=== PATIENT | male | born 1965 | race Caucasian/White ===

== ENCOUNTER 2018-09-21 16:43 | Emergency (ER) | payer SELFPAY ==
[~2018-09-21] VITALS: Ht 180.3 cm; Wt 77.3 kg
[2018-09-21 16:46] VITALS: BP 136/73
[2018-09-21] MEDS ORDERED: MORP15TA PO (17:35)
== END 2018-09-21 17:57 | disposition home or self-care (01) ==
LOC: ER 16:44
DX: C22.9 Malignant neoplasm of liver, not specified as primary or secondary (principal); Z76.0 Encounter for issue of repeat prescription; Z79.899 Other long term (current) drug therapy
CPT/HCPCS: 99283

== ENCOUNTER 2018-10-01 16:52 | Emergency (ER) | payer MEDICAID ==
[~2018-10-01] VITALS: Ht 177.8 cm; Wt 77.3 kg
[~2018-10-01 16:52] MED LIST: MORP15TA PO
[2018-10-01] MEDS ORDERED: normal saline 1000ML IV soln IVB ONE (17:30)
[2018-10-01] MEDS ORDERED: morphine 4 MG/ML inj SYRINge IV ONE (17:30)
[2018-10-01 17:45] LABS: BASOPHILS # (AUTO) 0.1 X10'3 (0-0.2); BASOPHILS % (AUTO) 1.3 % (0-1); EOSINOPHILS # (AUTO) 0.4 X10'3 (0-0.9); EOSINOPHILS % (AUTO) 6.9 % (0-6); HEMATOCRIT 44.8 % (42.0-52.0); HEMOGLOBIN 15.4 g/dl (14.0-17.9); LYMPHOCYTES # (AUTO) 1.8 X10'3 (1.1-4.8); LYMPHOCYTES % (AUTO) 31.4 % (21-51); MEAN CORPUSCULAR HEMOGLOBIN 32.4 PG (27.0-31.0); MEAN CORPUSCULAR HGB CONC 34.4 g/dL (33.0-36.5); MEAN CORPUSCULAR VOLUME 94.1 FL (78-98); MEAN PLATELET VOLUME 9.2 FL (7.4-10.4); MONOCYTES # (AUTO) 0.7 X10'3 (0-0.9); MONOCYTES % (AUTO) 11.8 % (2-12); NEUTROPHILS # (AUTO) 2.8 X10'3 (1.8-7.7); NEUTROPHILS % (AUTO) 48.6 % (42-75); PLATELET COUNT 170 X10'3 (140-440); RED BLOOD COUNT 4.76 X10'6 (4.70-6.10); RED CELL DISTRIBUTION WIDTH 14.5 % (11.5-14.5); WHITE BLOOD COUNT 5.8 X10'3 (4.5-11.0)
[2018-10-01] MEDS ORDERED: diphenhydrAMINE 50 mg/ml inj IV ONE (17:50)
--- NOTE | 2018-10-01 17:51 | NUR ---
LEFT ARM/IV SITE RED WITH HIVES.LOCALIZED, TITA AWARE, BENADRYL AND ICE APPLYED.
[2018-10-01 17:58] LABS: ALANINE AMINOTRANSFERASE 60 U/L (12-78); ALBUMIN 2.7 G/DL (3.4-5.0); ALBUMIN/GLOBULIN RATIO 0.7 (1.1-1.5); ALKALINE PHOSPHATASE 192 IU/L (46-116); ANION GAP 8 (8-16); ASPARTATE AMINO TRANSFERASE 63 U/L (10-37); BILIRUBIN,TOTAL 1.5 MG/DL (0.1-1.0); BLOOD UREA NITROGEN 11 MG/DL (7-18); BUN/CREATININE RATIO 14.9 (5.4-32.0); CALCIUM 8.5 MG/DL (8.5-10.1); CHLORIDE 110 MMOL/L (99-107); CREATININE 0.74 MG/DL (0.60-1.10); GLUCOSE 117 MG/DL (70-104); POTASSIUM 3.8 MMOL/L (3.5-5.1); SODIUM 143 MMOL/L (135-145); TOTAL CARBON DIOXIDE 25.5 MMOL/L (24-32); TOTAL PROTEIN 6.7 G/DL (6.4-8.2); eGFR > 90 ML/MIN
--- NOTE | 2018-10-01 18:01 | NUR ---
LEFT ARM WITH LOCALIZED HIVE, NOT RED IN COLOR, ICE IN PLACE
[2018-10-01] MEDS ORDERED: lactulose 20gm/30ml cup PO ONE (18:15)
[2018-10-01] MEDS ORDERED: SPIR25TA5 PO (18:49)
[2018-10-01] MEDS ORDERED: LACT10SO PO (18:49)
[2018-10-01] MEDS ORDERED: PROP10TA10 PO (18:49)
[2018-10-01 19:08] VITALS: BP 158/107
== END 2018-10-01 19:11 | disposition home or self-care (01) ==
LOC: ER 16:55
DX: E72.20 Disorder of urea cycle metabolism, unspecified (principal); K74.60 Unspecified cirrhosis of liver; R06.02 Shortness of breath; I11.0 Hypertensive heart disease with heart failure; I50.9 Heart failure, unspecified; Z95.0 Presence of cardiac pacemaker; Z85.05 Personal history of malignant neoplasm of liver; Z79.899 Other long term (current) drug therapy
CPT/HCPCS: 36415; 71045; 80053; 82140; 83880; 84484; 85025; 93005; 96374; 96375; 99284; J1200; J2270; J7030

== ENCOUNTER 2018-10-04 05:07 | Emergency (ER) | payer MEDICAID, MEDICARE ==
[~2018-10-04] VITALS: Ht 177.8 cm; Wt 74.5 kg
[~2018-10-04 05:07] MED LIST changes: +LACT10SO PO; -MORP15TA PO; +PROP10TA10 PO; +SPIR25TA5 PO
[2018-10-04 05:09] VITALS: BP 163/109
--- NOTE | 2018-10-04 05:54 | NUR ---
He states he is from [place] and stuck here in [place] and is with family and can't get his morphine prescription filled because he is out of state and narcotic prescriptions dont transfer across state lines. States he uses it for his liver cancer.
--- NOTE | 2018-10-04 06:41 | NUR ---
PT. WAS BEING THEATENING TOWARDS DR. JUAN. ONE STAFF MEMBER OUTSIDE THE ROOM AT THE DOOR WAY. I WAS STANDING OUTSIDE THE ROOM ON THE OTHER SIDE OF THE DOOR. PT. WAS NOT GETTING THE MEDICATION HE WAS REQUESTING FROM DR. JUAN, AND WHEN SHE WANTED TO DESCUSS TREATING HIS SYMPTOMS WITH OUT THE USE OF AN OPIOID PT, MADE VIOLENT STATEMENTS, BUT MADE NO MOVE TO FOLLOW THROUGH WITH THEM. PT. THEN WANTED TO ENGAGE OTHER STAFF MEMBERS IN HIS DISPLAY OF AGITATED BERRAGE OF INSULTS. PT. STATED TO ME " THERE IS NO REASON FOR US TO ARGUE, I CAN BE THE ONE WHO LOOKS LIKE THE ASS" I AGREED WITH THE PT. AND WALKED AWAY PT. WALKED OUT OF THE BACK DOORS ON TO THE AMBULANCE BAY AND THEN PROCEDED TO THROW HIS DISCHARGE PAPER WORK ALL OVER OUR PARKING LOT. MYSELF AND ADMIT LOCKSTITCHER PICKED UP ALL THE PAPERS AND PUT THEM IN THE CONFIDENTIAL WASTE TO PROVENT PT. FROM CAUSING A HIPPA VIOLATION
== END 2018-10-04 07:07 | disposition left against medical advice (07) ==
LOC: ER 05:07
DX: G89.29 Other chronic pain (principal); Z76.0 Encounter for issue of repeat prescription; I50.9 Heart failure, unspecified; Z85.05 Personal history of malignant neoplasm of liver; Z79.899 Other long term (current) drug therapy
CPT/HCPCS: 99281

== ENCOUNTER 2019-06-10 11:34 | Emergency (ER) | payer MEDICAID ==
[~2019-06-10] VITALS: Ht 177.8 cm; Wt 75.5 kg
[~2019-06-10 11:34] MED LIST changes: -PROP10TA10 PO
[2019-06-10] MEDS ORDERED: ketorolac trometh. 30mg/ml inj. IM ONE (12:10)
[2019-06-10] MEDS ORDERED: morphine 4 MG/ML inj SYRINge IM ONE (12:10)
[2019-06-10 12:30] VITALS: BP 140/86
== END 2019-06-10 12:32 | disposition home or self-care (01) ==
LOC: ER 11:35
DX: R10.11 Right upper quadrant pain (principal); G89.29 Other chronic pain; I50.9 Heart failure, unspecified; Z79.899 Other long term (current) drug therapy
CPT/HCPCS: 96372; 99284; J1885; J2270

== ENCOUNTER 2019-06-14 23:02 | Emergency (ER) | payer MEDICAID ==
[~2019-06-14] VITALS: Ht 177.8 cm; Wt 74.0 kg
[2019-06-14 23:08] VITALS: BP 135/79
[2019-06-14] MEDS ORDERED: ondansetron 4mg rapidly disintigrating tab PO ONE (23:25)
[2019-06-14] MEDS ORDERED: morphine ER 15mg tablet PO PRN (23:25)
[2019-06-14] MEDS ORDERED: morphine IR (immed. release) 30mg tablet PO PRN (23:25)
[2019-06-15] MEDS ORDERED: proCHLORperazine 10 MG/2 ml inj IM ONE
== END 2019-06-15 00:09 | disposition home or self-care (01) ==
LOC: ER 23:02
DX: R10.11 Right upper quadrant pain (principal); I50.9 Heart failure, unspecified; G89.29 Other chronic pain; Z85.9 Personal history of malignant neoplasm, unspecified; Z72.89 Other problems related to lifestyle; Z79.899 Other long term (current) drug therapy
CPT/HCPCS: 96372; 99284; J0780

== ENCOUNTER 2019-08-11 11:34 | Emergency (ER) | payer MEDICAID ==
[~2019-08-11] VITALS: Ht 177.8 cm; Wt 77.4 kg
[2019-08-11 11:58] VITALS: BP 125/80
[2019-08-11] MEDS ORDERED: HYDROmorphone 1 mg/ml syringe IM ONE (12:05)
[2019-08-11 12:21] LABS: BASOPHILS # (AUTO) 0.2 X10'3 (0-0.2); EOSINOPHILS # (AUTO) 0.6 X10'3 (0-0.9); HEMOGLOBIN 13.7 g/dl (14.0-17.9); LYMPHOCYTES % (AUTO) 22.8 % (21-51)
[2019-08-11 12:23] LABS: BASOPHILS % (AUTO) 2.2 % (0-1); EOSINOPHILS % (AUTO) 9.1 % (0-6); HEMATOCRIT 40.1 % (42.0-52.0); LYMPHOCYTES # (AUTO) 1.6 X10'3 (1.1-4.8); MEAN CORPUSCULAR HEMOGLOBIN 31.5 PG (27.0-31.0); MEAN CORPUSCULAR HGB CONC 34.2 g/dL (33.0-36.5); MEAN CORPUSCULAR VOLUME 92.2 FL (78-98); MONOCYTES # (AUTO) 0.9 X10'3 (0-0.9); MONOCYTES % (AUTO) 13.3 % (2-12); NEUTROPHILS # (AUTO) 3.7 X10'3 (1.8-7.7); NEUTROPHILS % (AUTO) 52.6 % (42-75); PLATELET COUNT 155 X10'3 (140-440); RED BLOOD COUNT 4.35 X10'6 (4.70-6.10)
[2019-08-11 12:32] LABS: ALANINE AMINOTRANSFERASE 22 U/L (12-78); ALBUMIN 2.8 G/DL (3.4-5.0); ALBUMIN/GLOBULIN RATIO 0.8 (1.1-1.5); ALKALINE PHOSPHATASE 118 IU/L (46-116); ANION GAP 9 (8-16); ASPARTATE AMINO TRANSFERASE 20 U/L (10-37); BILIRUBIN,TOTAL 1.5 MG/DL (0.1-1.0); BLOOD UREA NITROGEN 10 MG/DL (7-18); BUN/CREATININE RATIO 14.5 (5.4-32.0); CALCIUM 8.5 MG/DL (8.5-10.1); CHLORIDE 110 MMOL/L (99-107); CREATININE 0.69 MG/DL (0.60-1.10); GLUCOSE 118 MG/DL (70-104); POTASSIUM 3.5 MMOL/L (3.5-5.1); SODIUM 143 MMOL/L (135-145); TOTAL CARBON DIOXIDE 24.2 MMOL/L (24-32); TOTAL PROTEIN 6.3 G/DL (6.4-8.2); eGFR > 90 ML/MIN
== END 2019-08-11 13:13 | disposition home or self-care (01) ==
LOC: ER 11:35
DX: R07.89 Other chest pain (principal); I50.9 Heart failure, unspecified; G89.29 Other chronic pain; Z79.899 Other long term (current) drug therapy
CPT/HCPCS: 71045; 80053; 84484; 85025; 93005; 96372; 99285; J1170

== ENCOUNTER 2019-08-24 16:56 | Emergency (ER) | payer MEDICAID ==
[~2019-08-24] VITALS: Ht 177.8 cm; Wt 78.0 kg
--- NOTE | 2019-08-24 18:28 | NUR ---
Pt notified EDT that he is wanting pain medication. Provider notified of patient's request. Pt is resting in a position of comfort on the gurney.
[2019-08-24] MEDS ORDERED: morphine 4 MG/ML inj SYRINge IM ONE (18:45)
[2019-08-24 19:09] VITALS: BP 147/100
== END 2019-08-24 19:11 | disposition home or self-care (01) ==
LOC: ER 16:56
DX: Z75.2 Other waiting period for investigation and treatment (principal); I50.9 Heart failure, unspecified; G89.29 Other chronic pain; Z85.9 Personal history of malignant neoplasm, unspecified; Z72.89 Other problems related to lifestyle; Z79.899 Other long term (current) drug therapy
CPT/HCPCS: 96372; 99283; J2270

== ENCOUNTER 2019-08-25 11:07 | Emergency (ER) | payer MEDICAID ==
[~2019-08-25] VITALS: Ht 177.8 cm; Wt 72.7 kg
[2019-08-25] MEDS ORDERED: morphine 4 MG/ML inj SYRINge IM ONE (11:55)
[2019-08-25] MEDS ORDERED: ondansetron 4mg rapidly disintigrating tab PO ONE (11:55)
[2019-08-25 14:08] VITALS: BP 137/87
== END 2019-08-25 14:10 | disposition home or self-care (01) ==
LOC: ER 11:09
DX: S60.311A Abrasion of right thumb, initial encounter (principal); G89.29 Other chronic pain; M79.641 Pain in right hand; R07.81 Pleurodynia; I25.10 Atherosclerotic heart disease of native coronary artery without angina pectoris; Z85.9 Personal history of malignant neoplasm, unspecified; Z72.89 Other problems related to lifestyle; Z79.899 Other long term (current) drug therapy; W18.39XA Other fall on same level, initial encounter; Y93.89 Activity, other specified; Y92.89 Other specified places as the place of occurrence of the external cause; Y99.8 Other external cause status
CPT/HCPCS: 93005; 96372; 99284; J2270

== ENCOUNTER 2019-09-09 19:02 | Emergency (ER) | payer MEDICAID ==
[~2019-09-09] VITALS: Ht 177.8 cm; Wt 72.7 kg
--- NOTE | 2019-09-09 19:28 | NUR ---
X RAY AT BEDSIDE
[2019-09-09 19:36] LABS: BASOPHILS # (AUTO) 0.1 X10'3 (0-0.2); BASOPHILS % (AUTO) 1.4 % (0-1); EOSINOPHILS # (AUTO) 0.5 X10'3 (0-0.9); EOSINOPHILS % (AUTO) 8.6 % (0-6); HEMATOCRIT 42.1 % (42.0-52.0); HEMOGLOBIN 14.3 g/dl (14.0-17.9); LYMPHOCYTES # (AUTO) 2.1 X10'3 (1.1-4.8); LYMPHOCYTES % (AUTO) 39.2 % (21-51); MEAN CORPUSCULAR HEMOGLOBIN 31.8 PG (27.0-31.0); MEAN CORPUSCULAR VOLUME 93.6 FL (78-98); MONOCYTES # (AUTO) 0.6 X10'3 (0-0.9); MONOCYTES % (AUTO) 11.7 % (2-12); NEUTROPHILS # (AUTO) 2.1 X10'3 (1.8-7.7); NEUTROPHILS % (AUTO) 39.1 % (42-75); PLATELET COUNT 168 X10'3 (140-440); RED BLOOD COUNT 4.49 X10'6 (4.70-6.10); RED CELL DISTRIBUTION WIDTH 15.2 % (11.5-14.5); WHITE BLOOD COUNT 5.3 X10'3 (4.5-11.0)
[2019-09-09 19:49] LABS: ALANINE AMINOTRANSFERASE 20 U/L (12-78); ALBUMIN/GLOBULIN RATIO 0.8 (1.1-1.5); ALKALINE PHOSPHATASE 114 IU/L (46-116); ANION GAP 7 (8-16); ASPARTATE AMINO TRANSFERASE 24 U/L (10-37); BILIRUBIN,TOTAL 0.9 MG/DL (0.1-1.0); BLOOD UREA NITROGEN 12 MG/DL (7-18); BUN/CREATININE RATIO 16.2 (5.4-32.0); CALCIUM 8.8 MG/DL (8.5-10.1); CHLORIDE 111 MMOL/L (99-107); CREATININE 0.74 MG/DL (0.60-1.10); GLUCOSE 111 MG/DL (70-104); POTASSIUM 3.8 MMOL/L (3.5-5.1); SODIUM 143 MMOL/L (135-145); TOTAL PROTEIN 6.9 G/DL (6.4-8.2); eGFR > 90 ML/MIN
[2019-09-09] MEDS ORDERED: ondansetron/PF 4mg/2ml inj IV ONE (20:35)
[2019-09-09] MEDS ORDERED: morphine 4 MG/ML inj SYRINge IV ONE (20:35)
[2019-09-09 21:45] LABS: D-DIMER 1.87 MG/L FEU (0-0.50)
[2019-09-09] MEDS ORDERED: iohexol 350MG/ML 100ml bottle IV ONE (22:02)
--- NOTE | 2019-09-09 22:15 | NUR ---
PT TO CT
[2019-09-09 22:49] VITALS: BP 146/82
== END 2019-09-09 23:30 | disposition home or self-care (01) ==
LOC: ER 19:02
DX: I50.9 Heart failure, unspecified (principal); R06.02 Shortness of breath; R07.9 Chest pain, unspecified; G89.29 Other chronic pain; Z85.9 Personal history of malignant neoplasm, unspecified; Z79.899 Other long term (current) drug therapy
CPT/HCPCS: 36415; 71045; 71275; 80053; 83880; 84484; 85025; 85379; 93005; 96374; 96375; 99285; J2270; J2405; Q9967

== ENCOUNTER 2019-11-07 11:04 | Inpatient (IN) | payer MEDICAID ==
[~2019-11-07] VITALS: Ht 177.8 cm; Wt 77.3 kg
--- NOTE | 2019-11-07 11:11 | NUR ---
Original POLST form brought in with pt to show DNR with comfort focused treatment.
[2019-11-07 11:41] LABS: CLARITY,URINE CLEAR (Clear); COLOR,URINE STRAW (Yellow); GLUCOSE, URINE NEGATIVE (Neg); KETONES,URINE NEGATIVE (Neg); LEUKOCYTE ESTERASE ,URINE NEGATIVE (Neg); NITRITES, URINE NEGATIVE (Neg); OCCULT BLOOD,URINE NEGATIVE (Neg); PROTEIN,URINE NEGATIVE (Neg); UROBILINOGEN,URINE 0.2 E.U/dL (0.2-1.0)
[2019-11-07 11:42] LABS: UA COLLECTION TYPE CLN CATCH MIDSTREAM
[2019-11-07 11:48] LABS: BASOPHILS # (AUTO) 0.1 X10'3 (0-0.2); BASOPHILS % (AUTO) 1.6 % (0-1); EOSINOPHILS # (AUTO) 0.4 X10'3 (0-0.9); EOSINOPHILS % (AUTO) 6.7 % (0-6); HEMATOCRIT 40.7 % (42.0-52.0); HEMOGLOBIN 14.2 g/dl (14.0-17.9); LYMPHOCYTES # (AUTO) 1.5 X10'3 (1.1-4.8); LYMPHOCYTES % (AUTO) 26.5 % (21-51); MEAN CORPUSCULAR HEMOGLOBIN 31.9 PG (27.0-31.0); MEAN CORPUSCULAR HGB CONC 34.8 g/dL (33.0-36.5); MEAN CORPUSCULAR VOLUME 91.7 FL (78-98); MONOCYTES # (AUTO) 0.5 X10'3 (0-0.9); MONOCYTES % (AUTO) 9.5 % (2-12); NEUTROPHILS # (AUTO) 3.2 X10'3 (1.8-7.7); NEUTROPHILS % (AUTO) 55.7 % (42-75); PLATELET COUNT 162 X10'3 (140-440); RED BLOOD COUNT 4.44 X10'6 (4.70-6.10); RED CELL DISTRIBUTION WIDTH 14.5 % (11.5-14.5); WHITE BLOOD COUNT 5.7 X10'3 (4.5-11.0)
[2019-11-07 11:58] LABS: ALANINE AMINOTRANSFERASE 33 U/L (12-78); ALBUMIN/GLOBULIN RATIO 0.7 (1.1-1.5); ALKALINE PHOSPHATASE 138 IU/L (46-116); ANION GAP 5 (8-16); ASPARTATE AMINO TRANSFERASE 47 U/L (10-37); BILIRUBIN,TOTAL 0.9 MG/DL (0.1-1.0); BLOOD UREA NITROGEN 13 MG/DL (7-18); BUN/CREATININE RATIO 19.1 (5.4-32.0); CALCIUM 9.2 MG/DL (8.5-10.1); CHLORIDE 106 MMOL/L (99-107); CREATININE 0.68 MG/DL (0.60-1.10); GLUCOSE 92 MG/DL (70-104); POTASSIUM 3.4 MMOL/L (3.5-5.1); SODIUM 141 MMOL/L (135-145); TOTAL CARBON DIOXIDE 29.6 MMOL/L (24-32); TOTAL PROTEIN 7.1 G/DL (6.4-8.2); eGFR > 90 ML/MIN
[2019-11-07 11:59] LABS: URINE AMPHETAMINE SCREEN NEGATIVE (Neg); URINE BARBITUATE SCREEN NEGATIVE (Neg); URINE BENZODIAZEPINES SCREEN NEGATIVE (Neg); URINE CANNABINOID SCREEN NEGATIVE (Neg); URINE COCAINE SCREEN NEGATIVE (Neg); URINE METHADONE SCREEN NEGATIVE (Neg); URINE OPIATE SCREEN POSITIVE (Neg); URINE PHENCYCLIDINE SCREEN NEGATIVE (Neg)
[2019-11-07 12:03] LABS: ETHANOL < 0.010 GM/DL (0.0-0.010)
[2019-11-07] MEDS ORDERED: metoclopramide 5 mg/ml inj IV PRN (12:30)
[2019-11-07] MEDS ORDERED: potassium CL 10mEq/100ml bag 100 ML IV PRN ×2 (12:30)
[2019-11-07] MEDS ORDERED: magnesium 4gm in 100ml NS 100 ML IV PRN (12:30)
[2019-11-07] MEDS ORDERED: magnesium hydroxide 30ml (MOM) UD suspension PO PRN (12:30)
[2019-11-07] MEDS ORDERED: acetaminophen 325mg tablet PO PRN (12:30)
[2019-11-07] MEDS ORDERED: bisacodyl 10mg suppository rectal RC PRN (12:30)
[2019-11-07] MEDS ORDERED: magnesium 2GM in 50ml NS 50 ML IV PRN (12:30)
[2019-11-07] MEDS ORDERED: potassium Cl 20 mEq SR tablet PO PRN (12:30)
[2019-11-07] MEDS ORDERED: ondansetron/PF 4mg/2ml inj IV PRN (12:30)
[2019-11-07] MEDS ORDERED: mag hydrox/Alum hydrox/simeth 30ml oral suspension PO PRN (12:30)
[2019-11-07] MEDS ORDERED: magnesium Cl slow-release 64mg tablet PO PRN (12:30)
[2019-11-07] MEDS ORDERED: LORA-268 PO (12:37)
[2019-11-07] MEDS ORDERED: OLAN10TA19 PO (12:37)
[2019-11-07] MEDS ORDERED: MORP30TA PO (12:37)
[2019-11-07] MEDS ORDERED: MORP-92 PO (12:37)
[2019-11-07] MEDS ORDERED: MSC30T PO (12:37)
[2019-11-07] MEDS ORDERED: MELO-100 PO (12:37)
--- NOTE | 2019-11-07 12:44 | NUR ---
Spoke to Steffanie GARSIA with [facility] who is in charge of pt's palliative care treatment. Per RN, the pt gets his medications dosed on a weekly basis, and she feels that he recently did something inccorectly as he is already asking for refills when he is not yet due. Pt also recently returned from a 3 week stay in [facility] at which time the pt began to complain of ascites and leg swelling. Pt finished 3 days course of 20mg Lasix BID roughly 3 days ago. Most recent scans taken of pt did show lesions on his lungs as well; pt is aware of this. Pt was previously on hospice, however he got beligerant from not taking lactulose, and was "fired" from their services. On Palliative as of 06/21/19. Steffanie states that the pt missed his visit yesterday, and also did not answer her phone calls which is not normal behavior for him. She adds that she is concerned that he once again is not taking his lactulose secondary to side effects. Contact info: [facility] Steffanie GARSIA Office: [phone]
--- NOTE | 2019-11-07 14:18 | NUR ---
PHARMACIST FINISHING MED REC
[2019-11-07] MEDS: lactulose 20gm/30ml cup PO SCH ×2 (14:34→20:00)
[2019-11-07] MEDS: normal saline 1000ml 1,000 ML IV SCH ×2 (14:34→22:28)
[2019-11-07 16:25] VITALS: BP 142/76
--- NOTE | 2019-11-07 17:13 | NUR ---
Patient went to the bathroom to have BM. When patient came back to bed, I noticed the peripheral IV catheter already out.
[2019-11-07 18:00] VITALS: BP 121/91
--- NOTE | 2019-11-07 18:38 | NUR ---
Problems reprioritized. Patient report given, questions answered & plan of care reviewed with Kamilah GARSIA.
--- NOTE | 2019-11-07 18:52 | NUR ---
I have received report from Jaleesa GARSIA and had the opportunity to ask questions and assume patient care.
[2019-11-07] MEDS: potassium Cl 20 mEq SR tablet PO PRN (19:58)
[2019-11-07] MEDS: morphine 4 MG/ML inj SYRINge IV PRN (19:58)
[2019-11-07 20:00] VITALS: BP 158/87
[2019-11-07] MEDS: K and/or MAG REPLACEMENT MC SCH (20:00)
--- NOTE | 2019-11-07 20:03 | NUR ---
Mateo Lucero "I'm having diarrhea, I'll take tomorrow" Addendum: 11/07/19 at 2004 by Hi العلي RN Amended: Links added.
[2019-11-07] MEDS ORDERED: temazepam 15mg capsule PO PRN (21:00)
[2019-11-07] MEDS: olanzapine 10mg tablet PO SCH (21:38)
[2019-11-08] VITALS: BP_SYST 132; BP_SYST 140; BP_DIAS 80; BP_DIAS 90
[2019-11-08] MEDS: potassium Cl 20 mEq SR tablet PO PRN (00:15)
[2019-11-08] MEDS: morphine 4 MG/ML inj SYRINge IV PRN ×4 (00:16→20:35)
--- NOTE | 2019-11-08 01:25 | NUR ---
No belongings documented on admit to er. Pt still refusing to open black case with locks, case is out of patients reach. Addendum: 11/08/19 at 0126 by Hi العلي RN Amended: Links added.
[2019-11-08] MEDS: lactulose 20gm/30ml cup PO SCH ×4 (02:00→20:34)
[2019-11-08] MEDS: normal saline 1000ml 1,000 ML IV SCH ×3 (03:06→22:06)
[2019-11-08 05:23] LABS: BASOPHILS # (AUTO) 0.1 X10'3 (0-0.2); BASOPHILS % (AUTO) 0.9 % (0-1); EOSINOPHILS # (AUTO) 0.4 X10'3 (0-0.9); EOSINOPHILS % (AUTO) 4.9 % (0-6); HEMATOCRIT 39.9 % (42.0-52.0); HEMOGLOBIN 13.9 g/dl (14.0-17.9); LYMPHOCYTES # (AUTO) 1.8 X10'3 (1.1-4.8); LYMPHOCYTES % (AUTO) 22.6 % (21-51); MEAN CORPUSCULAR HGB CONC 34.7 g/dL (33.0-36.5); MEAN CORPUSCULAR VOLUME 92.3 FL (78-98); MEAN PLATELET VOLUME 9.4 FL (7.4-10.4); MONOCYTES # (AUTO) 0.7 X10'3 (0-0.9); MONOCYTES % (AUTO) 9.1 % (2-12); NEUTROPHILS % (AUTO) 62.5 % (42-75); PLATELET COUNT 155 X10'3 (140-440); RED BLOOD COUNT 4.33 X10'6 (4.70-6.10); RED CELL DISTRIBUTION WIDTH 14.4 % (11.5-14.5)
[2019-11-08 06:21] LABS: ALANINE AMINOTRANSFERASE 39 U/L (12-78); ALBUMIN 2.8 G/DL (3.4-5.0); ALBUMIN/GLOBULIN RATIO 0.8 (1.1-1.5); ALKALINE PHOSPHATASE 140 IU/L (46-116); ANION GAP 7 (8-16); ASPARTATE AMINO TRANSFERASE 68 U/L (10-37); BILIRUBIN,TOTAL 1.7 MG/DL (0.1-1.0); BLOOD UREA NITROGEN 13 MG/DL (7-18); CALCIUM 8.8 MG/DL (8.5-10.1); CHLORIDE 108 MMOL/L (99-107); CREATININE 0.65 MG/DL (0.60-1.10); GLUCOSE 83 MG/DL (70-104); MAGNESIUM 1.7 MG/DL (1.5-2.4); POTASSIUM 3.5 MMOL/L (3.5-5.1); SODIUM 142 MMOL/L (135-145); TOTAL CARBON DIOXIDE 27.5 MMOL/L (24-32); TOTAL PROTEIN 6.5 G/DL (6.4-8.2); eGFR > 90 ML/MIN
--- NOTE | 2019-11-08 06:34 | NUR ---
Patient in room [facility]. I have received report from luis m GARSIA and had the opportunity to ask questions and assume patient care.
--- NOTE | 2019-11-08 06:42 | NUR ---
Problems reprioritized. Patient report given, questions answered & plan of care reviewed with Tanja GARSIA.
[2019-11-08 07:00] VITALS: BP 156/87
[2019-11-08] MEDS: K and/or MAG REPLACEMENT MC SCH ×2 (08:00→20:00)
--- NOTE | 2019-11-08 09:38 | NUR ---
patient refusing lactulose wants to be left alone.
--- NOTE | 2019-11-08 10:57 | NUR ---
medicated for pain 10/24 will monitor
[2019-11-08 11:00] VITALS: BP 142/84
[2019-11-08] MEDS ORDERED: RIFA550T PO (11:56)
--- NOTE | 2019-11-08 17:58 | NUR ---
medicated for pain [address] tompkins aware. Is for hospice home care with [facility] time of 1200 11/09/19.Repor given to Kamilah GARSIA
[2019-11-08 18:00] VITALS: BP 121/91
--- NOTE | 2019-11-08 18:43 | NUR ---
I have received report from Tanja GARSIA and had the opportunity to ask questions and assume patient care.
[2019-11-08] MEDS: olanzapine 10mg tablet PO SCH (20:34)
--- NOTE | 2019-11-08 23:37 | NUR ---
amb to bathroom sba regis well, refuses to use urinal. pt dhara harris, has set bed alarm off several times tonight, Forgets he is in hospital. Addendum: 11/08/19 at 7858 by Hi العلي RN Amended: Links added.
[2019-11-09] VITALS: BP 132/80
--- NOTE | 2019-11-09 00:24 | NUR ---
Pt confused, wants to get dressing, oob amb in room pulling on cords, opening bathroom door, moving bedside tray around. States needs to call someone, thinks it is daytime, forgets in hospital. bed alarm and tabs on. pt unhooks tab unit from shirt. pt mumbles. amb back to bed enc pt to stay in bed and instructed he is going home in am. Pt remains confused to place and time. Addendum: 11/09/19 at 0028 by Hi العلي RN Amended: Links added.
[2019-11-09] MEDS: morphine 4 MG/ML inj SYRINge IV PRN (00:37)
[2019-11-09] MEDS ORDERED: LORazepam 0.5 MG tablet PO PRN (01:40)
[2019-11-09] MEDS: lactulose 20gm/30ml cup PO SCH ×2 (01:59→08:00)
--- NOTE | 2019-11-09 03:54 | NUR ---
pt is anxious and agitated. pt is constantly getting out of bed. bed alarm is on because pt is confused to time and place and needs a SBA. Pt mumbles and talks incoherently. Pt keeps pulling on cords in the room. Pt keeps pulling at his IV. pt states he is going to pull his IV out. I called MD and requested ativan as that is a medication the pt takes at home. a sitter was also ordered for the pt. pt is cussing at staff. Pt states he wants to leave and we keep reminding him that he is going home at noon today. will continue to monitor
--- NOTE | 2019-11-09 05:22 | NUR ---
pt keeps getting out of bed. the sitter tries to assist the pt walking because he is unsteady. pt is refusing assistance and will not let the sitter assist with walking. pt is being educated about safety and falls. will continue to monitor.
--- NOTE | 2019-11-09 06:26 | NUR ---
Problems reprioritized. Patient report given, questions answered & plan of care reviewed with Steffanie GARSIA.
--- NOTE | 2019-11-09 06:29 | NUR ---
Patient in room [facility]. I have received report from ADY Triana and had the opportunity to ask questions and assume patient care.
[2019-11-09] MEDS: K and/or MAG REPLACEMENT MC SCH (08:00)
== END 2019-11-09 10:20 | disposition home or self-care (01) | DRG 279 ==
LOC: ER 11:04 → ED HOLD 12:28 → SUR 3N 16:12
PROVIDERS: ADMIT Family Medicine; ATTEND Family Medicine
DX: K72.90 Hepatic failure, unspecified without coma (principal); C22.9 Malignant neoplasm of liver, not specified as primary or secondary; E72.20 Disorder of urea cycle metabolism, unspecified; E87.6 Hypokalemia; F10.20 Alcohol dependence, uncomplicated; I50.9 Heart failure, unspecified; R47.81 Slurred speech; R74.0 Nonspecific elevation of levels of transaminase and lactic acid dehydrogenase [LDH]; Z85.05 Personal history of malignant neoplasm of liver; Z51.5 Encounter for palliative care
CPT/HCPCS: 36415; 70450; 80053; 80305; 80320; 81003; 82140; 83735; 85025; 85610; 87081; 99285; G0378; J2270; J7030